=== PATIENT | male | born 1990 | race Caucasian/White ===

== ENCOUNTER → 2020-06-24 10:47 | Outpatient (CLI) | payer OTHER, SELFPAY ==
[2020-06-25 19:22] LABS: SARS-CoV-2 RNA PCR Negative
== END ==
PROVIDERS: PCP Internal Medicine; Visit Provider Nurse Practitioner
DX: R68.89 Other general symptoms and signs (principal); Z20.822 Contact with and (suspected) exposure to COVID-19
CPT/HCPCS: C9803; U0003; U0005

== ENCOUNTER 2020-09-07 08:49 | Outpatient (CLI) | payer OTHER, SELFPAY ==
--- NOTE | ~2020-09-07 | XR_ITS ---
XR knee RT 3V 09/07/2020 09:27 INDICATION: Right knee pain PROCEDURE: 2 views right knee COMPARISON: No prior studies for comparison. FINDINGS: Fracture, dislocation or subluxation is not identified. No significant joint effusion. The soft tissues appear within normal limits. No foreign bodies are identified. IMPRESSION: 1: NO ACUTE BONE OR JOINT ABNORMALITY IDENTIFIED. Reviewed, dictated and finalized at location A.
== END 2020-09-07 08:50 ==
PROVIDERS: PCP Internal Medicine; Visit Provider Internal Medicine
DX: R22.42 Localized swelling, mass and lump, left lower limb (principal)
CPT/HCPCS: 73562

== ENCOUNTER 2020-09-17 10:12 | Outpatient (CLI) | payer OTHER, SELFPAY ==
--- NOTE | ~2020-09-17 | US_ITS ---
US soft tissue LE RT 09/17/2020 10:34 Indication: Leg swelling and palpable mass Procedure: High-resolution ultrasound of the right knee soft tissues Comparison: No prior studies for comparison. Findings: In the area of palpable concern at the right knee inferior lateral in the area of palpable concern there is a complicated septated cyst measuring 3.9 x 3.9 x 1.2 cm. No other masses or fluid c ollections are identified. Impression: 1: Complicated cysts measuring up to 3.9 cm in the area of palpable concern. If there is concern for infection, consider aspiration. Reviewed, dictated and finalized at location B. Impression: 1: Complicated cysts measuring up to 3.9 cm in the area of palpable concern. If there is concern for infection, consider aspiration.
== END 2020-09-17 10:13 | disposition home or self-care (01) ==
PROVIDERS: PCP Internal Medicine; Visit Provider Internal Medicine
DX: F98.8 Other specified behavioral and emotional disorders with onset usually occurring in childhood and adolescence (principal); R22.42 Localized swelling, mass and lump, left lower limb
CPT/HCPCS: 76882

== ENCOUNTER 2022-10-31 09:57 | Outpatient (CLI) | payer OTHER, SELFPAY ==
[2022-10-31 10:33] LABS: Basophils Percent Auto 0.4 % (0.2-1.2); Eosinophils Absolute Auto 0.1 K/mm3 (0-0.3); Eosinophils Percent Auto 1.9 % (0-4.4); Hematocrit 43.3 % (42.0-52.0); Immature Granulocyte Absolute 0.01 K/mm3 (0.00-0.031); Immature Granulocyte Percent A 0.1 % (0-0.5); Lymphocytes Absolute Auto 1.59 K/mm3 (0.9-3.2); Lymphocytes Percent Auto 23.8 % (18.3-44.2); Mean Corpuscular HGB Conc 34.6 g/dl (32-36); Mean Corpuscular Hemoglobin 31.3 pg (26-34); Mean Corpuscular Volume 90.2 fl (80-100); Mean Platelet Volume 9.9 fl (7.4-10.4); Monocytes Absolute Auto 0.6 K/mm3 (0.1-0.6); Neutrophils Absolute Auto 4.3 K/mm3 (1.3-6.7); Neutrophils Percent Auto 64.8 % (45.5-73.1); Platelet Count Result 193 k/mm3 (150-375); Red Cell Distribution Width 11.9 % (11.5-14.5); White Blood Count 6.7 K/mm3 (4.5-10.0)
[2022-10-31 10:45] LABS: Alanine Aminotransferase 29 U/L (6-50); Albumin Level 4.9 g/dL (3.5-5.1); Alkaline Phosphatase 49 U/L (38-126); Anion Gap 8 mmol/L (8-16); Aspartate Amino Transferase 27 U/L (17-59); Blood Urea Nitrogen 16 mg/dL (9-20); Calcium 9.3 mg/dL (8.4-10.2); Carbon Dioxide 27 mmol/L (22-30); Chloride 102 mmol/L (98-107); Cholesterol 196 mg/dL (0-200); Estimated Glomerular Filt Rate > 60; Glucose 89 mg/dL (65-110); HDL Direct 40 mg/dL; Potassium 4.3 mmol/L (3.4-5.0); Sodium 137 mmol/L (137-145); Triglycerides 207 mg/dL (<150)
[2022-10-31 10:56] LABS: LDL Cholesterol Direct 104 mg/dL
[2022-10-31 11:03] LABS: Iron 150 ug/dL (49-181)
[2022-10-31 11:08] LABS: Vitamin D 25 Hydroxy 44.8 ng/mL
[2022-10-31 11:12] LABS: Percent Iron Saturation 42 % (20-50)
[2022-10-31 11:50] LABS: Folic Acid 10.6 ng/mL (2.76->20)
[2022-11-03 12:05] LABS: Testosterone Total 366 ng/dL (250-1100)
== END 2022-10-31 09:58 | disposition home or self-care (01) ==
LOC: ANHLAB 09:59
PROVIDERS: PCP Nurse Practitioner Family; Visit Provider Nurse Practitioner Family
DX: Z00.00 Encounter for general adult medical examination without abnormal findings (principal); R53.83 Other fatigue; F41.9 Anxiety disorder, unspecified; E55.9 Vitamin D deficiency, unspecified
CPT/HCPCS: 36415; 80053; 80061; 82306; 82607; 82746; 83540; 83550; 84403; 84443; 85025

== ENCOUNTER 2024-05-02 14:08 | Emergency (ER) | payer OTHER, SELFPAY ==
--- NOTE | ~2024-05-02 | XR_ITS ---
EXAMINATION: XR hand LT min 3V DATE: 05/02/2024 15:00 INDICATION: Left hand laceration. TECHNIQUE: 3 views of left hand were obtained. COMPARISON: None. FINDINGS: Alignment is normal. No fracture. Joint spaces are normal. Bandage material overlies the th ird-fifth digits. IMPRESSION: 1. No fracture or radiopaque foreign body. Reviewed, dictated and finalized at location A. SPECIALIST
--- OUTSIDE RECORDS SUMMARY | 2024-05-02 14:10 | XMS_ITS | Continuity of Care Document ---
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 Name Role Phone Pineda OD, Elver Unavailable Unavailable Procedures Procedure Date No Charge Contact Lens Check Eye Exam & Treatment Refraction Contact Lens Fitting Eye Exam & Treatment Refraction Eye Exam, New Patient Refraction Advance Directives Directive Yes / No Effective Date File Name No Information Encounters Encounter Description Practice Location Reason(s) For Visit Diagnoses Date Provider Providers Copied on Encounter [facility], [address] [place] [address] [address], [place], [place], [address], [place] tel:[phone] [facility] No Information 9-200 9 Pineda OD Elver. [address], [place], [place], [facility], [place]. tel:[phone] [facility], [address], [place], [place], [address], [place] tel:[phone] [facility] No Information 2-200 9 Pineda OD Elver. [address], [place], [address], [place]. tel:[phone] [facility], [address], [place], [place], [address], [place] tel:[phone] [facility] No Information 5200 8 Pineda OD Elver. [address], [place], [address], [place]. tel:[phone] [facility], [address], [place], [place], [address], [place] tel:[phone] [facility] No Information 3200 7 Pineda OD Elver. [address] , [address], [place], [address], [place]. tel:[phone] Family History Family Member Type Diagnosis Age At Onset No Information Payers Payer name Insurance type Covered libertarian ID Authoriza tion(s) No Information Social History Type Description Quantity Date Captured Comments Sex Male Smoking Status No Information Chief Complaint And Reason For Visit No Information Reason For Referral Reason For Referral No Information History Of Present Illness Encounter Date Complaint History Of Prese nt Illness No Information Functional Status Date Functional Assessmen t No Information Instructions Date Instruction Additional Infor mation No Information Assessments Type Assessment Date No Information Patient Care Teams Name Effective Dates (start - stop) Status Members No Information
[2024-05-02 14:12] VITALS: BP 150/65; PULSE 89; RESP 18; TEMP 36.6; O2SAT 99
--- NOTE | 2024-05-02 14:16 | ED_ITS ---
HPI - Extremity Injury (Upper) General Chief Complaint: Extremity Injury, Upper <AMIRAH Millan Last Filed: 05/02/24 14:17> Stated Complaint: L hand lac <AMIRAH Millan Last Filed: 05/02/24 14:17> Time Seen by Provider: 05/02/24 17:02 <AMIRAH Millan Last Filed: 05/02/24 14:17> Focused HPI: 34-year-old male presents emergency department for lacerations through left digits 2 through 5. Patient states he was using electric tree trimmer helper when accidentally cut his digits. Went to urgent care was sent to the ED for further evaluation. Tdap is up-to-date 1 year ago. GENERAL: Well-appearing, well-nourished, and in no acute distress. HEAD: Normocephalic, atraumatic. CHEST: Clear to auscultation. ?No respiratory distress. SKIN: V-shaped laceration to digits 5 and 4, small lacerations to 3 and 2. Active bleeding to digits 4 and 5, however controlled with dressings in triage. Patient has full active and passive range of motion of digits 1 through 4, minimally decreased flexion to digit 5 which may be secondary to pain. Cap refill less than 2 throughout. Radial, median and ulnar nerves are intact. Radial pulse 2 +. HEART: Regular rate and rhythm.? NEURO: ?Alert and oriented x3. Patient screened in triage and initial orders placed.? ?Additional care and disposition to be based upon?diagnostic testing and treatment. <AMIRAH Millan Last Filed: 05/02/24 14:17> Related Data Allergies/Adverse Reactions: Allergies Allergy/AdvReac Type Severity Reaction Status Date / Time Penicillins Allergy Mild Itching Verified 04/29/24 07:32 <AMIRAH Millan Last Filed: 05/02/24 14:17> Review of Systems Review of Systems: CONSTITUTIONAL: Denies fever SKIN: Reports laceration MUSCULOSKELETAL: Denies joint pain, or myalgia. NEUROLOGIC: Denies numbness <AMIRAH Saavedra Last Filed: 05/02/24 19:36> All systems reviewed & are unremarkable except as noted in HPI and below <Stacey Corado PA-C - Last Filed: 05/02/24 19:36> [facility] Past Medical History Medical History: Medical History Cyst ADD (attention deficit disorder) Anxiety <Tasia Chaney PA-C - Last Filed: 05/02/24 14:17> Surgical History Surgical History: Surgical History History of wisdom tooth extraction History of appendectomy <Tasia Chaney PA-C - Last Filed: 05/02/24 14:17> Family History Family History: Family History Grandparent Family history of congestive heart failure Cerebrovascular accident Acute myocardial infarction Other Family history of elevated blood lipids Family history of hypercholesterolemia Family history of hypothyroidism Family history of peptic ulcer Hypertension <Tasia Chaney PA-C - Last Filed: 05/02/24 14:17> Social History Social History: Social History Years smoked: 5 Smoking status: Former smoker Tobacco type: e-cigarettes/vaping Smokeless tobacco user: chewing tobacco Smoking end date: 04/26/20 Additional smoking assessment comments: Pt stopped chewing 3 weeks ago. 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 HEAD: Normocephalic, atraumatic. EYES: EOMI. EXTREMITIES: Normal range of motion. No edema. Flap lacerations to the left hand 2nd through 5th fingers into subcutaneous tissue to the palmar surface SKIN: Warm, dry, no rash. NEURO: No focal deficits. Alert and oriented x3. PSYCH: Normal mood and affect <AMIRAH Saavedra Last Filed: 05/02/24 19:36> Course Course Emergency Course: Patient educated on further wound care <AMIRAH Saavedra Last Filed: 05/02/24 19:36> Vital Signs Vital signs: Vital Signs Temperature 97.9 F 05/02/24 14:12 Pulse Rate 89 05/02/24 14:12 Respiratory Rate 18 05/02/24 14:12 Blood Pressure 150/65 H 05/02/24 14:12 Pulse Oximetry 99 05/02/24 14:12 Oxygen Delivery Room Air 05/02/24 14:12 Temperature 97.9 F 05/02/24 14:12 Pulse Rate 89 05/02/24 14:12 Respiratory Rate 18 05/02/24 14:12 Blood Pressure 150/65 H 05/02/24 14:12 Pulse Oximetry 99 05/02/24 14:12 Oxygen Delivery Room Air 05/02/24 14:12 <AMIRAH Millan Last Filed: 05/02/24 14:17> Vital Signs Temperature 97.9 F 05/02/24 14:12 Pulse Rate 89 05/02/24 14:12 Respiratory Rate 18 05/02/24 14:12 Blood Pressure 150/65 H 05/02/24 14:12 Pulse Oximetry 99 05/02/24 14:12 Oxygen Delivery Room Air 05/02/24 14:12 Temperature 97.9 F 05/02/24 14:12 Pulse Rate 89 05/02/24 14:12 Respiratory Rate 18 05/02/24 14:12 Blood Pressure 150/65 H 05/02/24 14:12 Pulse Oximetry 99 05/02/24 14:12 Oxygen Delivery Room Air 05/02/24 14:12 <AMIRAH Saavedra Last Filed: 05/02/24 19:36> Procedures Laceration Laceration 1: Date: 05/02/24 <AMIRAH Saavedra Last Filed: 05/02/24 19:36> Time: 19:32 <AMIRAH Saavedra Last Filed: 05/02/24 19:36> Site: hand <AMIRAH Saavedra Last Filed: 05/02/24 19:36> Side (If applicable): left <AMIRAH Saavedra Last Filed: 05/02/24 19:36> Size (cm): 1.5 <AMIRAH Saavedra Last Filed: 05/02/24 19:36> Description: flap <AMIRAH Saavedra Last Filed: 05/02/24 19:36> Depth: simple, single layer <AMIRAH Saavedra Last Filed: 05/02/24 19:36> Local Anesthetic: lidocaine 1% <AMIRAH Saavedra Last Filed: 05/02/24 19:36> Amount of anesthesia used (mL): 1 <AMIRAH Saavedra Last Filed: 05/02/24 19:36> Pre-repair: wound explored and irrigated <AMIRAH Saavedra Last Filed: 05/02/24 19:36> ====== Skin Level ======: Skin layer closed with: nylon <AMIRAH Saavedra Last Filed: 05/02/24 19:36> Size (cm): 4-0 <AMIRAH Saavedra Last Filed: 05/02/24 19:36> Number of sutures: 6 <AMIRAH Saavedra Last Filed: 05/02/24 19:36> Technique: simple, interrupted <AMIRAH Saavedra Last Filed: 05/02/24 19:36> ====== Subcutaneous Layer ======: ====== Muscle Layer ======: ====== Tendon Layer ======: Laceration 2: Date: 05/02/24 <AMIRAH Saavedra Last Filed: 05/02/24 19:36> Time: 19:33 <AMIRAH Saavedra Last Filed: 05/02/24 19:36> Site: hand <AMIRAH Saavedra Last Filed: 05/02/24 19:36> Side (If applicable): left <AMIRAH Saavedra Last Filed: 05/02/24 19:36> Size (cm): 1 <AMIRAH Saavedra Last Filed: 05/02/24 19:36> Description: flap <AMIRAH Saavedra Last Filed: 05/02/24 19:36> Depth: simple, single layer <AMIRAH Saavedra Last Filed: 05/02/24 19:36> Local Anesthetic: lidocaine 1% <AMIRAH Saavedra Last Filed: 05/02/24 19:36> Amount of anesthesia used (mL): 1 <AMIRAH Saavedra Last Filed: 05/02/24 19:36> Pre-repair: wound explored and irrigated <AMIRAH Saavedra Last Filed: 05/02/24 19:36> ====== Skin Level ======: Skin layer closed with: nylon <AMIRAH Saavedra Last Filed: 05/02/24 19:36> Size (cm): 4-0 <AMIRAH Saavedra Last Filed: 05/02/24 19:36> Number of sutures: 3 <AMIRAH Saavedra Last Filed: 05/02/24 19:36> Technique: simple, interrupted <AMIRAH Saavedra Last Filed: 05/02/24 19:36> ====== Subcutaneous Layer ======: ====== Muscle Layer ======: ====== Tendon Layer ======: Laceration 3: Date: 05/02/24 <AMIRAH Saavedra Last Filed: 05/02/24 19:36> Time: 19:33 <AMIRAH Saavedra Last Filed: 05/02/24 19:36> Site: hand <AMIRAH Saavedra Last Filed: 05/02/24 19:36> Side (If applicable): left <AMIRAH Saavedra Last Filed: 05/02/24 19:36> Size (cm): 1 <AMIRAH Saavedra Last Filed: 05/02/24 19:36> Description: flap <AMIRAH Saavedra Last Filed: 05/02/24 19:36> Depth: simple, single layer <AMIRAH Saavedra Last Filed: 05/02/24 19:36> Local Anesthetic: lidocaine 1% <AMIRAH Saavedra Last Filed: 05/02/24 19:36> Amount of anesthesia used (mL): 1 <MAIRAH Saavedra Last Filed: 05/02/24 19:36> Pre-repair: wound explored <AMIRAH Saavedra Last Filed: 05/02/24 19:36> ====== Skin Level ======: Skin layer closed with: nylon <AMIRAH Saavedra Last Filed: 05/02/24 19:36> Size (cm): 4-0 <AMIRAH Saavedra Last Filed: 05/02/24 19:36> Number of sutures: 2 <AMIRAH Saavedra Last Filed: 05/02/24 19:36> Technique: simple, interrupted <AMIRAH Saavedra Last Filed: 05/02/24 19:36> ====== Subcutaneous Layer ======: ====== Muscle Layer ======: ====== Tendon Layer ======: Laceration 4: Date: 05/02/24 <AMIRAH Saavedra Last Filed: 05/02/24 19:36> Time: 19:34 <AMIRAH Saavedra Last Filed: 05/02/24 19:36> Site: hand <AMIRAH Saavedra Last Filed: 05/02/24 19:36> Side (If applicable): left <AMIRAH Saavedra Last Filed: 05/02/24 19:36> Size (cm): 1 <AMIRAH Saavedra Last Filed: 05/02/24 19:36> Description: linear <AMIRAH Saavedra Last Filed: 05/02/24 19:36> Depth: simple, single layer <AMIRAH Saavedra Last Filed: 05/02/24 19:36> Local Anesthetic: lidocaine 1% <AMIRAH Saavedra Last Filed: 05/02/24 19:36> Amount of anesthesia used (mL): 1 <AMIRAH Saavedra Last Filed: 05/02/24 19:36> Pre-repair: wound explored and irrigated <AMIRAH Saavedra Last Filed: 05/02/24 19:36> ====== Skin Level ======: Skin layer closed with: nylon <AMIRAH Saavedra Last Filed: 05/02/24 19:36> Size (cm): 4-0 <AMIRAH Saavedra Last Filed: 05/02/24 19:36> Number of sutures: 3 <AMIRAH Saavedra Last Filed: 05/02/24 19:36> Technique: simple, interrupted <AMIRAH Saavedra Last Filed: 05/02/24 19:36> ====== Subcutaneous Layer ======: ====== Muscle Layer ======: ====== Tendon Layer ======: MDM - Extremity Injury (Upper) MDM Narrative Medical decision making narrative: Patient presents to the emergency department for lacerations to the left hand sustained just prior to arrival. He is up-to-date on tetanus vaccination. Wounds were irrigated and closed with sutures. Left hand x-ray without acute osseous abnormalities or evidence of foreign body. He was educated on further wound care. He is to follow up with primary provider. He was given warnings to return to the ER <AMIRAH Saavedra Last Filed: 05/02/24 19:36> Differential Diagnosis Differential diagnosis: Likely other (Laceration, abrasion) <AMIRAH Saavedra Last Filed: 05/02/24 19:36> Imaging Data Radiologist's impression: ITS Impressions Hand X-Ray 05/02/24 15:01 IMPRESSION: 1. No fracture or radiopaque foreign body. <AMIRAH Saavedra Last Filed: 05/02/24 19:36> Critical Care Time Critical Care Time Critical Care Time: No <AMIRAH Saavedra Last Filed: 05/02/24 19:36> Discharge Plan Discharge Clinical Impression: Laceration <AMIRAH Millan Last Filed: 05/02/24 14:17> Patient Disposition: Home, Self-Care <AMIRAH Millan Last Filed: 05/02/24 14:17> Condition: Stable <AMIRAH Millan Last Filed: 05/02/24 14:17> Instructions: Antibiotic Form, Care For Your Stitches (ED), Laceration (ED) <AMIRAH Millan Last Filed: 05/02/24 14:17> Additional Instructions: Return to the emergency department if you experience fever, redness or swelling of your wound, abnormal drainage from your wound, or any other symptoms that are concerning to you. Apply antibiotic ointment daily. Do not soak the wound. Clean with mild soap and water daily. Take oral antibiotic as prescribed Follow-up with your primary care doctor for suture removal in 10-14 days. <AMIRAH Millan Last Filed: 05/02/24 14:17> Patient Language: Welsh <AMIRAH Millan Last Filed: 05/02/24 14:17> Prescriptions: New cephalexin 500 mg capsule 500 mg PO Q8H 5 Days Qty: 15 0RF No Action methylprednisolone [Medrol (Sky)] 4 mg tablets,dose pack See Rx Instructions PO PER PKG DIR Qty: 21 0RF Rx Instructions: PO PER PKG DIR escitalopram oxalate 20 mg tablet 20 mg PO DAILY Qty: 90 1RF <Tasia Chaney PA-C - Last Filed: 05/02/24 14:17> Follow-up/Referrals: Ashanti oPnce, RESTAURANT SHIFT LEADER [Primary Care Provider] - <Tasia Chaney PA-C - Last Filed: 05/02/24 14:17>
--- OUTSIDE RECORDS SUMMARY | 2024-05-02 18:01 | XMS_ITS | Continuity of Care Document ---
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 Name Role Phone Pienda OD, Elver Unavailable Unavailable Procedures Procedure Date No Charge Contact Lens Check Eye Exam & Treatment Refraction Contact Lens Fitting Eye Exam & Treatment Refraction Eye Exam, New Patient Refraction Advance Directives Directive Yes / No Effective Date File Name No Information Encounters Encounter Description Practice Location Reason(s) For Visit Diagnoses Date Provider Providers Copied on Encounter [facility], [address] [place] [address] [address], [place], [place], [id number], [place] tel:[phone] SEC [facility] No Information 9-200 9 Pineda OD Elver. [address], [place], [place], [facility], [place]. tel:[phone] [facility], [address], [place], [place], [address], [place] tel:[phone] [facility] No Information 2-200 9 Pineda OD Elver. [address], [place], [address], [place]. tel:[phone] [facility], [address], [place], [place], [address], [place] tel:[phone] [facility] No Information 5200 8 Pineda OD Elver. [address], [place], [address], [place]. tel:[phone] [facility], [address] [facility] [place] [address], [place], [place], [address], [place] tel:[phone] [facility] No Information 3200 7 Pineda OD Elver. [address], [place], [address], [place]. tel:[phone] Family History Family Member Type Diagnosis Age At Onset No Information Payers Payer name Insurance type Covered republican ID Authoriza tion(s) No Information Social History [...]
[2024-05-02 19:42] VITALS: BP 135/85; PULSE 75; RESP 18; O2SAT 99
== END 2024-05-02 19:43 | disposition home or self-care (01) ==
PROVIDERS: Emergency Provider Physician Assistant; PCP Nurse Practitioner Family
DX: S61.211A Laceration without foreign body of left index finger without damage to nail, initial encounter (principal); S61.213A Laceration without foreign body of left middle finger without damage to nail, initial encounter; S61.215A Laceration without foreign body of left ring finger without damage to nail, initial encounter; S61.217A Laceration without foreign body of left little finger without damage to nail, initial encounter; F17.210 Nicotine dependence, cigarettes, uncomplicated; F17.290 Nicotine dependence, other tobacco product, uncomplicated; W29.3XXA Contact with powered garden and outdoor hand tools and machinery, initial encounter
CPT/HCPCS: 12002; 73130; 99283; J2003

== ENCOUNTER 2024-11-04 06:36 | Emergency (ER) | payer OTHER, SELFPAY ==
--- OUTSIDE RECORDS SUMMARY | 2024-11-04 06:39 | XMS_ITS | Patient Health Record ---
Author Organization [facility] [employer] [facility] Address [address] [facility] [address] [place] [address] Care Team Providers Care Tire Fixer Name Role Phone WINTER Ashanti DAWSON Primary Care Provider Unavailab Yayo Aguilera Unavailable [phone] Allergies Allergen (clinical drug ingredient) Drug/Non Drug Allergy documented on EMR Reaction Allergy Type Onset Date Status Penicillin Unknown Drug Allergy Active Reason For Referral No Information Social History Sex Assigned At : Social History Observation Description Sex Assigned At Male Plan Of Treatment No Information Insurance Providers Payer Name Payer Address Payer Phone Subscriber Number Group Number Insured Name Patient Relationship to Insured Coverage Start Date Coverage End Date [facility] [id number] [place] [address] [id number] LIZ SIERRA Self - patient is the insured Medical (General) History Medical History History ICD Code Cyst ADD Anxiety
--- OUTSIDE RECORDS SUMMARY | 2024-11-04 06:39 | XMS_ITS | Continuity of Care Document ---
Author Organization [facility] Address [address] [place] [address] Phone Care Team Providers Care Teacher Home Therapy Name Role Phone Pineda OD, Elver Unavailable Unavailable Procedures Procedure Date No Charge Contact Lens Check Eye Exam & Treatment Refraction Contact Lens Fitting Eye Exam & Treatment Refraction Eye Exam, New Patient Refraction Advance Directives Directive Yes / No Effective Date File Name No Information Encounters Encounter Description Practice Location Reason(s) For Visit Diagnoses Date Provider Providers Copied on Encounter [facility], [address] [place] [address] [address], [place], [place], [address], [place] tel:[phone] [facility] No Information 9-200 9 Pineda OD Elver. [address], [place], [place], [facility], [place]. tel:[phone] [facility], [address], [place], [place], [address], [place] tel:[phone] [facility] No Information 2-200 9 Pineda OD Elver. [address], [place], [address], [place]. tel:[phone] [facility], [address], [place], [place], [address], [place] tel:[phone] [facility] No Information 5200 8 Pineda OD Elver. [address], [place], [address], [place]. tel:[phone] [facility] Eye [facility], [address], [place], [place], [address], [place] tel:[phone] [facility] No Information 3200 7 Pineda OD Elver. [address] [facility] [address] , [address], [place], [address], [place]. tel:[phone] Family History Family Member Type Diagnosis Age [...]
[2024-11-04 06:41] VITALS: PULSE 71; RESP 18; TEMP 36.8; O2SAT 100
[2024-11-04 06:42] VITALS: O2SAT 100
[2024-11-04 06:45] VITALS: O2SAT 100
--- NOTE | 2024-11-04 06:53 | ED_ITS ---
HPI - Wound/Laceration General Chief Complaint: Wound/Laceration Stated Complaint: stung by wasp, L hand/arm swelling Time Seen by Provider: 11/04/24 06:48 History of Present Illness HPI narrative: 34-year-old otherwise healthy male presenting with allergic reaction secondary to a wasp sting. He gets done yesterday in his left upper extremity. He has swelling in his left hand isolated to the hand and wrist. Significant amounts of swelling but no significant pain. Good distal cap refill and perfusion. No systemic symptoms. No shortness of breath, nausea, vomiting, diarrhea or GI upset. No history of anaphylaxis. He has tried some Benadryl without significant relief. Was otherwise in his normal state of health. Related Data Allergies Allergy/AdvReac Type Severity Reaction Status Date / Time Penicillins Allergy Mild Itching Verified 11/04/24 06:37 Review of Systems Review of Systems: As reviewed above in HPI [facility] Past Medical History Medical History Cyst ADD (attention deficit disorder) Anxiety Surgical History Surgical History History of wisdom tooth extraction History of appendectomy Family History Family History Grandparent Family history of congestive heart failure Cerebrovascular accident Acute myocardial infarction Other Family history of elevated blood lipids Family history of hypercholesterolemia Family history of hypothyroidism Family history of peptic ulcer Hypertension Social History Social History Years smoked: 5 Smoking status: Former smoker Tobacco type: e-cigarettes/vaping Smokeless tobacco user: chewing tobacco Smoking end date: 04/26/20 Additional smoking assessment comments: Pt stopped chewing 3 weeks ago. Pt socially smokes ciggarettes and cigars Alcohol intake: former Substance use: never Substance use type: does not use Lack of Transportation: No Lack of Food: Never True Current Housing: I Have Housing Concerned About Future Housing: No Difficulty Paying Gas/Electric Bills: No Difficulty Paying for Meds: No Currently Unemployed: No Education: Trade/Vocational Certificate Difficulty w/ Childcare or Family Care: No Living arrangements: alone Occupation/Education: occupation Additional occupation/education comments: [employer] Spiritual care concerns: No Agree to blood products: Yes Exam Narrative: GENERAL: [Well-appearing, well-nourished, and in no acute distress.] HEAD: [Normocephalic, atraumatic.] EYES: [PERRLA and EOMI.] ENT: Nares clear, no rhinorrhea or epistaxis. Mucous membranes moist. NECK: Supple. CHEST: [Clear to auscultation. No respiratory distress.] HEART: [Regular rate and rhythm]. No murmur heard. [Normal peripheral pulses.] ABDOMEN: [Soft, nondistended], [nontender], [No rigidity or guarding] EXTREMITIES: Edema and swelling to the dorsum of the left hand where the insect bite was. No retained foreign material or sting or evident. Good range of motion of all fingers, blanching erythema but no signs of infection or cellulitis. Capillary refill is full. Able to oppose each digit make a thumbs- up sign and okay sign. SKIN: Warm, dry, no rash. NEURO: [No focal deficits]. Alert and oriented [x3.] PSYCH: [Normal mood and affect.] Course Vital Signs Vital signs: Vital Signs Temperature 36.8 C 11/04/24 06:41 Pulse Rate 71 11/04/24 06:41 Respiratory Rate 18 11/04/24 06:41 Pulse Oximetry 100 11/04/24 06:41 Oxygen Delivery Room Air 11/04/24 06:41 Temperature 36.8 C 11/04/24 06:41 Pulse Rate 71 11/04/24 06:41 Respiratory Rate 18 11/04/24 06:41 Pulse Oximetry 100 11/04/24 06:41 Oxygen Delivery Room Air 11/04/24 06:41 MDM - Wound/Laceration MDM Narrative Medical decision making narrative: 34-year-old otherwise healthy male presenting with allergic reaction secondary to a wasp sting. He gets done yesterday in his left upper extremity. He has swelling in his left hand isolated to the hand and wrist. Significant amounts of swelling but no significant pain. Good distal cap refill and perfusion. No systemic symptoms. No shortness of breath, nausea, vomiting, diarrhea or GI upset. No history of anaphylaxis. He has tried some Benadryl without significant relief. Was otherwise in his normal state of health. Edema and swelling to the dorsum of the left hand where the insect bite was. No retained foreign material or sting or evident. Good range of motion of all fingers, blanching erythema but no signs of infection or cellulitis. Capillary refill is full. Able to oppose each digit make a thumbs-up sign and okay sign. Symptoms consistent with allergic reaction. No signs of anaphylaxis. He was given IM Decadron and Pepcid is here to took Benadryl before got here. This bug bite occurred yesterday and he has no signs of any respiratory compromise. He is hemodynamically stable. Given epinephrine autoinjector prescription given his significant reaction. He will be sent home with Pepcid and EpiPen prescription and instructions on care for his symptoms. Patient given return precautions and discharge instructions. Medical Records Attestation: I reviewed the patient's medical records. Discharge Plan Discharge Clinical Impression: Allergic reaction to wasp sting Patient Disposition: Home Condition: Stable Instructions: Antibiotic Form, Anaphylaxis (ED) Additional Instructions: You had a significant reaction to the wasp sting requiring some steroids. We gave you a strong long-acting steroid shot here and recommend taking 25 mg up to 50 mg of Benadryl every 8 hours in addition to Pepcid every 12 hours for symptom control. He can also take ibuprofen up to 800 mg every 8 hours for symptoms. We will prescribe you epinephrine auto injecting pending case you get significant symptoms that involve the respiratory system or significant distress. Take this and carry with you at all times. Return with any emergent concerns. Patient Language: Wallisian Prescriptions: New epinephrine [EpiPen] 0.3 mg/0.3 mL auto-injector 0.3 mg IM Q5-15M PRN (Reason: hypersensitivity reaction) Qty: 1 0RF Rx Instructions: do not exceed 3 doses per episode famotidine [Pepcid] 20 mg tablet 20 mg PO BID Qty: 20 0RF No Action escitalopram oxalate 20 mg tablet 20 mg PO DAILY Qty: 90 1RF aripiprazole 2 mg tablet 2 mg PO QHS Qty: 30 1RF Follow-up/Referrals: Ashanti Ponce APRN [Primary Care Provider] - Time of Disposition: 06:51
[2024-11-04] MEDS: dexAMETHasone SOD PHOS INJ 10 MG/ML 1 ML VIAL IM (06:54)
[2024-11-04] MEDS: FAMOTIDINE 20 MG TABLET PO (06:54)
--- OUTSIDE RECORDS SUMMARY | 2024-11-04 06:57 | XMS_ITS | Continuity of Care Document ---
Author Organization [facility] Address [address] [place] [address] Phone Care Team Providers Care Teletype Technician Name Role Phone Pineda OD, Elver Unavailable Unavailable Procedures Procedure Date No Charge Contact Lens Check Eye Exam & Treatment Refraction Contact Lens Fitting Eye Exam & Treatment Refraction Eye Exam, New Patient Refraction Advance Directives Directive Yes / No Effective Date File Name No Information Encounters Encounter Description Practice Location Reason(s) For Visit Diagnoses Date Provider Providers Copied on Encounter Formerly [facility], [address] [place] [address] [address], [place], [place], [id number], [place] tel:[phone] [facility] No Information 9-200 9 Pineda OD Elver. [address] , [address], [place], [place], [facility], [place]. tel:[phone] Formerly [facility], [address], [place], [place], [id number], [place] tel:[phone] [facility] No Information 2-200 9 Pineda OD Elver. [address], [place], [address], [place]. tel:[phone] Formerly [facility], [address], [place], [place], [id number], [place] tel:[phone] [facility] No Information 5200 8 Pineda OD Elver. [address] , [address], [place], [address], [place]. tel:[phone] [facility], [address] [facility], [place], [place], [id number], [place] tel:[phone] [facility] No Information 3200 7 Pineda OD Elver. [address] , [address], [place], [address], [place]. tel:[phone] Family History Family Member Type Diagnosis Age At Onset No Information Payers Payer name Insurance type Covered green party ID Authoriza tion(s) No Information Social History [...]
[2024-11-04 07:01] VITALS: BP 120/70; O2SAT 100
[2024-11-04 07:04] VITALS: BP 120/70; PULSE 73; RESP 16; TEMP 36.6; O2SAT 100
== END 2024-11-04 07:05 | disposition home or self-care (01) ==
LOC: ANHED 06:56
PROVIDERS: Emergency Provider Student in an Organized Health Care Education/Training Program; PCP Nurse Practitioner Family
DX: T78.49XA Other allergy, initial encounter (principal); T63.461A Toxic effect of venom of wasps, accidental (unintentional), initial encounter; R22.32 Localized swelling, mass and lump, left upper limb; Z87.891 Personal history of nicotine dependence
CPT/HCPCS: 96372; 99283; A9270; J1100